=== PATIENT | male | born 1980 | race Caucasian/White ===

== ENCOUNTER 2019-03-13 15:02 | Emergency (ER) | payer OTHER, MEDICAID ==
[~2019-03-13] VITALS: Ht 188 cm; Wt 181.4 kg
[2019-03-13 15:39] LABS: ABSOLUTE EOSINOPHILS 0.6 thou/uL (0.0-0.7); ABSOLUTE LYMPHOCYTES 1.5 thou/uL (0.8-5.3); ABSOLUTE MONOCYTES 0.6 thou/uL (0.0-1.2); ABSOLUTE NEUTROPHILS 5.2 thou/uL (1.6-8.1); BASOPHILS 0.4 %; EOSINOPHILS 7.1 %; HEMATOCRIT 40.9 % (42.0-52.0); HEMOGLOBIN 13.8 gm/dL (14.0-18.0); LYMPHOCYTES 19.5 %; MCH 29.7 pg (26.0-34.0); MCHC 33.8 g/dL (28.0-37.0); MCV 87.7 fL (80.0-100.0); MONOCYTES 7.1 %; MPV 6.9 fl. (7.2-11.1); NUCLEATED RBCS 0 /100WBC; PLATELET COUNT* 220 thou/uL (150-400); POLYS 65.9 %; RBC 4.66 mil/uL (4.50-6.00); RDW-CV 14.5 % (10.5-14.5); WBC 7.9 thou/uL (4.0-11.0)
[2019-03-13 15:49] LABS: CALCIUM 8.2 mg/dL (8.5-10.1); POTASSIUM 3.8 mmol/L (3.5-5.1)
[2019-03-13 15:50] LABS: APTT 25.7 Seconds (25.0-31.3); PROTIME 10.3 Seconds (9.20-11.50)
[2019-03-13 16:00] LABS: ALBUMIN 2.9 g/dL (3.4-5.0); MAGNESIUM 1.9 mg/dL (1.8-2.4); TOTAL BILIRUBIN 0.3 mg/dL (<0.1-1.0); TOTAL PROTEIN 7.7 g/dL (6.4-8.2)
[2019-03-13] MEDS ORDERED: VENTOLIN HFA 1818 GM INH (17:26)
[2019-03-13] MEDS ORDERED: LEVAQUIN 500 M500 MG PO (17:26)
[2019-03-13 17:38] VITALS: BP 131/80
--- NOTE | 2019-03-14 11:21 | EKG ---
[place] [address] ELECTROCARDIOGRAM REPORT Name: FRANCIS MOBLEY [facility] [place] [id number] Admission: 03/13/19 Attend Phys: Discharge: 03/13/19 Date of : 78 Report #: [id number] THIS REPORT FOR: //name// [facility] ED Test Date: 2019-03-13 Test Time: 15:12:12 Pat Name: FRANCIS MOBLEY Department: Room: Gender: M Cbx Operator: : 1980 Requested By: Matthew Peralta Order Number: [id number] MD: John Rios Measurements Intervals [place] Rate: 97 P: 34 HI: 174 QRS: 16 QRSD: 73 T: 39 QT: 343 QTc: 436 Interpretive Statements Sinus rhythm Low voltage, precordial leads Baseline wander in lead(s) I,III,aVL,V1,V2 No previous ECG available for comparison Electronically Signed On 03-14-2019 11:20:37 [employer]OLDER MACHINE by John Rios [email or web address] <ELECTRONICALLY SIGNED> By: John Rios MD, [facility] 03/14/19 1120 151 151 John Rios MD, FAC /EPI
== END 2019-03-13 17:39 | disposition home or self-care (01) ==
LOC: M.ERS 15:02
PROVIDERS: Family Medicine
DX: J18.9 Pneumonia, unspecified organism (principal)